=== PATIENT | female | born 2000 | race Two or more races ===

== ENCOUNTER 2024-09-02 01:20 | Emergency (ER) | payer SELFPAY ==
[2024-09-02 01:26] VITALS: BP 113/92; PULSE 86; RESP 20; TEMP 98.2; BMI 24.7
[2024-09-02] MEDS ORDERED: predniSONE 20 MG TABLET (UD) ONE ×2 (01:49→02:53)
[2024-09-02] MEDS ORDERED: ALBUTEROL SO4 2.5/IPRATROPIUM 0.5 INH SOL 3 ML VIAL.NEB. NEB ONE (01:50)
[2024-09-02] MEDS: predniSONE 20 MG TABLET (UD) PO ONE (01:51)
[2024-09-02] MEDS: ALBUTEROL SO4 2.5/IPRATROPIUM 0.5 INH SOL 3 ML VIAL.NEB. NEB ONE (02:02)
[2024-09-02] MEDS ORDERED: ALBUTEROL SO4 HFA INHALER IH ONE (02:51)
[2024-09-02] MEDS: ALBUTEROL SO4 HFA INHALER IH ONE (02:52)
== END 2024-09-02 03:02 | disposition home or self-care (01) ==
LOC: JER 01:20
PROC: 3E0F7GC Introduction of Other Therapeutic Substance into Respiratory Tract, Via Natural or Artificial Opening (ICD-10-PCS; principal; 2024-09-02)
DX: R06.00 Dyspnea, unspecified (principal); R07.89 Other chest pain
CPT/HCPCS: 0241U-QW; 71046-TC-FY; 99284-25